=== PATIENT | male | born 1980 | race Two or more races ===

== ENCOUNTER 2018-03-22 12:45 | Emergency (ER) | payer OTHER ==
[~2018-03-22] VITALS: Ht 180.3 cm; Wt 154.2 kg
[2018-03-22 13:20] VITALS: BP 132/69
[2018-03-22] MEDS ORDERED: NALBUPHINE HCL 10 MG/1ml INJECTION IM ONE (14:00)
== END 2018-03-22 14:45 | disposition home or self-care (01) ==
LOC: ER 12:45
DX: S46.911A Strain of unspecified muscle, fascia and tendon at shoulder and upper arm level, right arm, initial encounter (principal); M75.31 Calcific tendinitis of right shoulder; X50.0XXA Overexertion from strenuous movement or load, initial encounter; Y93.89 Activity, other specified; Y99.8 Other external cause status; Y92.89 Other specified places as the place of occurrence of the external cause
CPT/HCPCS: 73030; 96372; 99284; J2300